=== PATIENT | male | born 1955 | race Caucasian/White ===

== ENCOUNTER → 2022-03-22 | Day surgery (SDC) | payer OTHER ==
[~2022-03-22] VITALS: Ht 180.3 cm; Wt 102.0 kg
[~2022-03-22] MED LIST: ATARAX25 MG PO; COZAAR100 MG PO; DULOXETINE HCL30 MG PO; HCTZ25 MG PO; HYDROCODON-ACE1 EAC6 PO; IBUPROFEN800 M1 PO; IMODIUM2 MG PO; KEFLEX250 MG PO; METRONIDAZOLE500 MG PO; OMEPRAZOLE40 MG PO; ONDANSETRON ODT4 MG PO; PREDNISONE 20MG20 MG PO; TAMSULOSIN HCL0.4 MG PO
[2022-03-22 11:11] LABS: HCT 49.4 % (42.0-52.0); MCH 31.5 pg (25.0-31.0); MCHC 34.4 g/dL (32.0-36.0); MCV 91.5 fL (78.0-100.0); MPV 9.3 fL (6.0-9.5); RBC 5.4 M/uL (4.70-6.00); RDW 12.8 % (11.5-14.0); WBC 7.3 K/uL (4.0-10.5)
[2022-03-22 11:49] LABS: CREATININE 0.84 mg/dL (0.67-1.17); POTASSIUM 3.9 mmol/L (3.5-5.1)
== END | disposition home or self-care (01) ==
LOC: FAS 10:24
PROVIDERS: Legal Medicine
DX: G56.01 Carpal tunnel syndrome, right upper limb (principal); M19.012 Primary osteoarthritis, left shoulder; M75.42 Impingement syndrome of left shoulder
CPT/HCPCS: 36415; 80048; 93005; J0690; J1040; J2250; J2405; J2704; J2795; J3010; J7120

== ENCOUNTER 2022-03-28 16:06 | Emergency (ER) | payer OTHER ==
[~2022-03-28 16:06] MED LIST changes: -ATARAX25 MG PO; -IMODIUM2 MG PO; -KEFLEX250 MG PO; -METRONIDAZOLE500 MG PO; -ONDANSETRON ODT4 MG PO; -PREDNISONE 20MG20 MG PO
[2022-03-28 17:36] LABS: BASOPHIL 0.4 % (0-2); EOSINOPHIL 0.8 % (0-7); HCT 54.6 % (42.0-52.0); HGB 18.7 g/dl (13.2-18.0); LYMPHOCYTE 10.3 % (15-48); MCH 31.8 pg (25.0-31.0); MCHC 34.2 g/dL (32.0-36.0); MCV 92.9 fL (78.0-100.0); MONOCYTE 6.8 % (0-12); MPV 9.1 fL (6.0-9.5); NRBC 0; PLT 266 K/uL (150-400); RBC 5.88 M/uL (4.70-6.00); WBC 13.9 K/uL (4.0-10.5)
[2022-03-28 17:57] LABS: ALBUMIN 3.8 g/dL (3.4-5.0); BILIRUBIN - TOTAL 0.5 mg/dL (0.2-1.0); BUN/CREAT RATIO (CALC) 23.1 RATIO; CREATININE 0.91 mg/dL (0.67-1.17); GLOBULIN (CALCULATION) 3.3 g/dL; POTASSIUM 3.8 mmol/L (3.5-5.1); TOTAL PROTEIN 7.1 g/dL (6.4-8.2)
[2022-03-28] MEDS ORDERED: PREDNISONE 20MG20 MG PO (18:47)
[2022-03-28] MEDS ORDERED: ONDANSETRON ODT4 MG PO (18:47)
[2022-03-28] MEDS ORDERED: IMODIUM2 MG PO (18:47)
[2022-03-28] MEDS ORDERED: KEFLEX250 MG PO (18:47)
[2022-03-28] MEDS ORDERED: ATARAX25 MG PO (18:47)
[2022-03-28] MEDS ORDERED: METRONIDAZOLE500 MG PO (19:54)
== END 2022-03-28 20:10 | disposition home or self-care (01) ==
LOC: FER 16:06
PROVIDERS: Emergency Medicine
DX: L23.1 Allergic contact dermatitis due to adhesives (principal); R19.7 Diarrhea, unspecified; Z28.310 Unvaccinated for COVID-19
CPT/HCPCS: 36415; 80053; 84145; 85025; J0690; J2930; J7030; Q9967